=== PATIENT | male | born 1960 | race Caucasian/White ===

== ENCOUNTER 2020-06-03 09:09 | Inpatient (IN) ==
[2020-06-03] MEDS ORDERED: IOPAMIDOL 100 ML BOTTLE IV ONE (09:10)
[2020-06-03] MEDS ORDERED: HYDROmorphone 0.5 MG/0.5 ML SYRINGE IV PRN (09:43)
[2020-06-03] MEDS ORDERED: 0.9 % SODIUM CHLORIDE 1,000 ML IV ONE (09:50)
[2020-06-03] MEDS ORDERED: VANCOMYCIN 1,000 MG in 0.9 % SODIUM CHLORIDE 250 ML IV ONE (09:50)
[2020-06-03] MEDS ORDERED: ONDANSETRON 4 MG/2 ML VIAL IV ONE (09:50)
--- NOTE | 2020-06-03 09:56 | Emergency Department Note ---
SOB HPI General Chief Complaint: Shortness of Breath/Dyspnea Stated Complaint: Sob Time Seen by Provider: 06/03/20 09:37 Source: EMS Mode of arrival: EMS Limitations: no limitations History of Present Illness HPI Narrative: Narrative: 59-year-old male with known metastatic colon cancer comes in complaining of shortness of breath starting this morning. Pain is worse this morning. He is already on fentanyl patches x3 and apixaban-along with as needed hydromorphone for breakthrough pain. He is on Compazine for n ausea at home along with Zofran. He feels like he just cannot catch his breath At this time he is not on hospice, however he is a DNR but does want treatment today Related Data Previous Rx's Medication Instructions Recorded budesonide 3 mg 3 mg PO QAM #30 each 04/27/20 capsule,delayed,extended release prochlorperazine maleate 10 mg 10 mg PO Q6H PRN #90 tab 05/04/20 tablet fentanyl 75 mcg/hr transdermal 5 patch TRANSDERMA Q72H 28 Days 05/18/20 patch #50 each hydromorphone 4 mg tablet See Rx Instructions PO QID PRN 05/19/20 #180 tab ondansetron 8 mg disintegrating 8 mg PO Q8H PRN #60 tab 05/27/20 tablet apixaban 5 mg tablet 5 mg PO BID #60 tab 05/31/20 oxybutynin chloride 5 mg 5 mg PO QDAY #30 tab 05/31/20 tablet,extended release 24 hr tamsulosin 0.4 mg capsule 0.4 mg PO QHS #90 cap 05/31/20 fentanyl 100 mcg/hr transdermal See Rx Instructions TRANSDERMA 06/02/20 patch Q48H #60 each Allergies Allergy/AdvReac Type Severity Reaction Status Date / Time No Known Drug Allergies Allergy Verified 06/03/20 09:10 Review of Systems ROS ROS Narrative: Narrative: All systems ED: reviewed and negative except as stated. [facility] Narrative Patient History Narrative: Narrative: Medical/Surgical/Family History All Active Problems (Updated 06/03/20 @ 14:04 by Danis Florian MD) Mucus plugging of bronchi (Acute) Acute UTI (Acute) Acute hypokalemia (Acute) Acute hypernatremia (Acute) Heartburn (Chronic) Increased nausea and vomiting (Chronic) Thrombocytopenia (Chronic) Severe protein-calorie malnutrition (Chronic) Severe sepsis (Chronic) Sepsis (Chronic) Intestinal adhesions with partial obstruction (Chronic) Hypotension due to hypovolemia (Chronic) DVT (deep venous thrombosis) (Chronic) Constipation due to opioid therapy (Chronic) Colon carcinoma metastatic to liver (Chronic) Carcinomatosis (Chronic) Cancer related pain (Chronic) Bacterial pneumonia (Chronic) Pedal edema (Chronic) History of heart artery stent (Chronic ~2004) History of gastric bypass (Chronic ~1998) History of colon resection (Chronic) Intestinal fistula (Chronic) Small bowel obstruction (Chronic) Malignant neoplasm of ascending colon (Chronic 01/09/20) Status post insertion of percutaneous endoscopic gastrostomy (PEG) tube (Chronic) Fistula (Chronic ~2019) Bowel obstruction (Chronic ~2019) Joint pain (Chronic) Insomnia (Chronic) Depression (Chronic) Daytime sleepiness (Chronic) Muscle pain (Chronic) Colon cancer (Chronic ~10/2019) Arthritis (Chronic) Anxiety (Chronic) Pneumonia (Chronic) Generalized weakness (Chronic) Medical History Anxiety (Chronic) Arthritis (Chronic) Bacterial pneumonia (Chronic) Bowel obstruction (Chronic ~2019) Cancer related pain (Chronic) Carcinomatosis (Chronic) Colon cancer (Chronic ~10/2019) Stage 4 metastatic Colon carcinoma metastatic to liver (Chronic) Constipation due to opioid therapy (Chronic) Daytime sleepiness (Chronic) Depression (Chronic) DVT (deep venous thrombosis) (Chronic) Fistula (Chronic ~2019) Heartburn (Chronic) Hypotension due to hypovolemia (Chronic) Insomnia (Chronic) Intestinal adhesions with partial obstruction (Chronic) Intestinal fistula (Chronic) Joint pain (Chronic) Malignant neoplasm of ascending colon (Chronic 01/09/20) Muscle pain (Chronic) Sepsis (Chronic) Severe protein-calorie malnutrition (Chronic) Severe sepsis (Chronic) Small bowel obstruction (Chronic) associated with peritoneal carcinomatosis Thrombocytopenia (Chronic) Surgical History History of colon resection (Chronic) 2013, 2017, 2019 History of gastric bypass (Chronic ~1998) History of heart artery stent (Chronic ~2004) Status post insertion of percutaneous endoscopic gastrostomy (PEG) tube (Chronic) Family History Mother Arthritis High blood pressure Father Arthritis High blood pressure Thyroid disease Family/Other Cancer Aunts, Uncles Sister Cancer Grandfather Cancer Maternal Social History Smoking Status: Current some day smoker Alcohol Intake Frequency: does not drink Substance Use: does not use Exam Narrative Narrative: Narrative: Resting, thin/cachectic very jaundiced but this is not new. Normocephalic atraumatic. Conjunctive a are clear but he does have significant icterus. No nasal discharge or congestion. He is wearing nasal cannula oxygen with sats 100%-without it. Oropharynx with dry buccal mucosa. Neck is supple without lymphadenopathy thyromegaly. Heart is regular rate and rhythm no murmur appreciated. Lungs are clear to auscultation bilaterally except for faint crackles. Abdomen is soft and diffusely tender. He has an ostomy bag as well as a Trevino. +2 pitting edema to bilateral ankle. Skin exam besides the jaundice shows significant purpura in multiple areas. PICC line in place on upper right arm General Limitations: no limitations Course Vital Signs Vital signs: Vital Signs Temperature 97.3 F 06/03/20 09:10 Pulse Rate 125 H 06/03/20 09:10 Respiratory Rate 22 06/03/20 09:10 Blood Pressure 94/65 06/03/20 09:10 Pulse Oximetry (%) 100 06/03/20 09:10 Temperature 97.3 F 06/03/20 09:10 Pulse Rate 110 H 06/03/20 13:32 Respiratory Rate 36 H 06/03/20 13:50 Blood Pressure 81/67 06/03/20 13:50 Pulse Oximetry (%) 100 06/03/20 13:32 [facility] MDM Narrative Medical decision making narrative: Narrative: Differential diagnosis includes pneumonia PE CHF ACS bronchitis and other entities. PE is less likely as he is on apixaban. Possible sepsis if this is infectious as his blood pressures are low Order work-up including laboratory blood gas. Chest x-ray shows likely pneumonia. CT ordered to confirm. Start IV fluids and antibiotics for pneumonia with possible sepsis He was getting quite anxious so we gave him some Ativan in addition to some Dilaudid for pain. He was quite somnolent after that but was retaining his oxygen sats CT scan of the chest does not show a PE but it does show complete collapse of the left lower lobe. I discussed this with Dr. Francisco Avitia the radiologist who felt that this represented more of a mucous plugging picture. So then I discussed the case with Dr. Damir Rahman the anthropological linguist who agreed to consult on the patient. Patient will need to be admitted to the hospitalist- again he is DNR but does want treatment I discussed with him that we could not fully treat him here he was in septic shock and this could be lethal. I offered to send him north to [place] for more extensive treatment but he declined; as best as I can tell he wants us to do more limited care down here treating him with antibiotics and fluids and pressors with the understanding that he will likely of his metastatic colon cancer. I discussed this with the hospitalist and advised him that the patient does wanted limited care here. The family and social and political studies professor are involved and he may be transitioned to comfort care later but for right now, that is his wishes. We will go ahead and start Levophed as his blood pressures continue to trend down. He does not seem uncomfortable now. Anxiety and pain treatment seems to have worked. He has low potassium and cannot take orals so we will do a K rider I discussed this with Dr. Whitman the hospitalist but after my discussion the patient's family all came together and decided to make him comfort care only. We will discontinue antibiotics pressors and K rider. Dr. Whitman will bring him in for comfort care only Lab Data Result diagrams: 06/03/20 10:12 06/03/20 10:12 Labs: Lab Results 06/03/20 06/03/20 06/03/20 Range/Units 10:12 10:12 10:12 WBC 10.7 (4.50-11.00) K/mcL RBC 3.61 L (4.63-6.08) M/mcL Hgb 10.5 L (13.7-17.5) g/dL Hct 34.4 L (40.1-51.0) % MCV 95.3 (80.0-100.0) fL MCH 29.1 (26.0-34.0) pg MCHC 30.5 L (31.0-36.0) g/dL RDW 18.6 H (11.5-14.5) % Plt Count 65 L (140-440) K/mcL MPV TNP Gran % 96.4 H (38.0-78.0) % Lymph % (Auto) 2.1 L (15.5-49.0) % Isabela % (Auto) 1.1 (1.0-12.0) % Eos % (Auto) 0.1 (0.0-7.0) % Baso % (Auto) 0.3 (0.0-2.0) % Gran # 10.32 H (1.80-8.00) K/mcL Lymph # (Auto) 0.23 L (1.50-4.80) K/mcL Isabela # (Auto) 0.12 (0.10-0.90) K/mcL Eos # (Auto) 0.01 (0.00-0.70) K/mcL Baso # (Auto) 0.03 (0.00-0.30) K/mcL Differential Comment Few nrbcs on scan VBG Lactic Acid 4.0 H* (0.5-2.0) mmol/L Sodium 155 H (133-145) mmol/L Potassium 2.9 L* (3.3-5.1) mmol/L Chloride 118 H (96-108) mmol/L Carbon Dioxide 18 L (22-30) mmol/L Anion Gap 19.0 H (8-16) BUN 62 H (8-23) mg/dl Creatinine TNP POC Creatinine 0.7 (0.7-1.2) mg/dl GFR Calculation TNP Glucose 89 (70-105) mg/dL Calcium 8.4 L (8.6-10.4) mg/dl Magnesium 2.8 H (1.6-2.5) mg/dL Total Bilirubin 11.7 H (0.0-1.0) mg/dL AST 66 H (0-37) U/l ALT 112 H (0-40) U/l Alkaline Phosphatase 1507 H (39-117) U/L Troponin T (0-0.03) ng/ml NT-Pro-B Natriuret Pep 190.1 H (0-125) pg/ml Total Protein 5.4 L (5.9-8.4) gm/dL Albumin 1.7 L (3.2-5.2) gm/dL Globulin 3.7 (2.2-3.7) gm/dL Albumin/Globulin Ratio 0.5 L (1.0-2.3) Lipase 10 (7-60) U/L Procalcitonin (<0.10) ng/mL Urine Color Urine Appearance Urine pH (5.0-9.0) Ur Specific Wolsey (1.000-1.035) Urine Protein (NEG) mg/dL Urine Glucose (UA) (NEG) mg/dL Urine Ketones (NEG) mg/dL Urine Occult Blood (<0.03) mg/dL Urine Nitrate (NEG) Urine Bilirubin (NEG) mg/dL Urine Ictotest (NEG) Urine Urobilinogen (NEG) mg/dL Ur Leukocyte Esterase (NEG) /uL Urine RBC (0-1) /hpf Urine WBC (0-4) /hpf Ur Squamous Epith Cells (0-4) /hpf Ur Transition Epith Cell (0-2) /hpf Urine Bacteria (0) /hpf Hyaline Casts (0-2) /lpf Granular Casts (0) /lpf Urine Mucus (0) /hpf Ur Culture Indicated? 06/03/20 06/03/20 06/03/20 Range/Units 10:12 10:12 11:03 WBC (4.50-11.00) K/mcL RBC (4.63-6.08) M/mcL Hgb (13.7-17.5) g/dL Hct (40.1-51.0) % MCV (80.0-100.0) fL MCH (26.0-34.0) pg MCHC (31.0-36.0) g/dL RDW (11.5-14.5) % Plt Count (140-440) K/mcL MPV Gran % (38.0-78.0) % Lymph % (Auto) (15.5-49.0) % Isabela % (Auto) (1.0-12.0) % Eos % (Auto) (0.0-7.0) % Baso % (Auto) (0.0-2.0) % Gran # (1.80-8.00) K/mcL Lymph # (Auto) (1.50-4.80) K/mcL Isabela # (Auto) (0.10-0.90) K/mcL Eos # (Auto) (0.00-0.70) K/mcL Baso # (Auto) (0.00-0.30) K/mcL Differential Comment VBG Lactic Acid (0.5-2.0) mmol/L Sodium (133-145) mmol/L Potassium (3.3-5.1) mmol/L Chloride (96-108) mmol/L Carbon Dioxide (22-30) mmol/L Anion Gap (8-16) BUN (8-23) mg/dl Creatinine POC Creatinine (0.7-1.2) mg/dl GFR Calculation Glucose (70-105) mg/dL Calcium (8.6-10.4) mg/dl Magnesium (1.6-2.5) mg/dL Total Bilirubin (0.0-1.0) mg/dL AST (0-37) U/l ALT (0-40) U/l Alkaline Phosphatase (39-117) U/L Troponin T < 0.01 (0-0.03) ng/ml NT-Pro-B Natriuret Pep (0-125) pg/ml Total Protein (5.9-8.4) gm/dL Albumin (3.2-5.2) gm/dL Globulin (2.2-3.7) gm/dL Albumin/Globulin Ratio (1.0-2.3) Lipase (7-60) U/L Procalcitonin 6.91 (<0.10) ng/mL Urine Color Tika Urine Appearance Hazy Urine pH 5.0 (5.0-9.0) Ur Specific Wolsey 1.017 (1.000-1.035) Urine Protein 30 A (NEG) mg/dL Urine Glucose (UA) Negative (NEG) mg/dL Urine Ketones Neg (NEG) mg/dL Urine Occult Blood Neg (<0.03) mg/dL Urine Nitrate Neg (NEG) Urine Bilirubin 4.0 A (NEG) mg/dL Urine Ictotest Pos A (NEG) Urine Urobilinogen 4.0 A (NEG) mg/dL Ur Leukocyte Esterase Neg (NEG) /uL Urine RBC < 1 (0-1) /hpf Urine WBC 4 (0-4) /hpf Ur Squamous Epith Cells 0 (0-4) /hpf Ur Transition Epith Cell < 1 (0-2) /hpf Urine Bacteria Many A (0) /hpf Hyaline Casts 31 H (0-2) /lpf Granular Casts 27 H (0) /lpf Urine Mucus Few (0) /hpf Ur Culture Indicated? Yes Radiology Data Radiology results reviewed: Yes I reviewed the patient's radiology results. Radiology results narrative: Chest x-ray shows left lower lobe infiltrate versus CHF. Possibly early right CT scan of the chest shows bilateral atelectasis with mucous plugging on the left and complete collapse of left lower lung. Small spiculated mass right upper lung could be neoplasm. Multiple metastasis seen in the liver Discharge Plan Patient/Caregiver Discharge Instructions Pt seen by RETAIL AIDE/PA only: No Clinical Impression: Sepsis, Bacterial pneumonia, Mucus plugging of bronchi, Cancer related pain, Malignant neoplasm of ascending colon, Colon carcinoma metastatic to liver, Acute UTI, Acute hypokalemia, Acute hypernatremia Patient Disposition: Xfer As Inpt ([facility]) Condition: Critical Follow up with: Vini Mckinley DO [Primary Care Provider] - Prescriptions: No Action prochlorperazine maleate 10 mg tablet 10 mg PO Q6H PRN (Reason: Nausea) Qty: 90 RF: 0 fentanyl 75 mcg/hr patch 72 hour 5 patch TRANSDERMA Q72H 28 Days Qty: 50 RF: 0 hydromorphone 4 mg tablet See Rx Instructions PO QID PRN (Reason: Pain) Qty: 180 RF: 0 ondansetron 8 mg tablet,disintegrating 8 mg PO Q8H PRN (Reason: nausea and vomiting) Qty: 60 RF: 0 Eliquis 5 mg tablet 5 mg PO BID Qty: 60 RF: 5 tamsulosin [Flomax] 0.4 mg capsule 0.4 mg PO QHS Qty: 90 RF: 3 oxybutynin chloride 5 mg tablet extended release 24hr 5 mg PO QDAY Qty: 30 RF: 5 budesonide 3 mg capsule,delayed,extend.release 3 mg PO QAM Qty: 30 RF: 0 fentanyl 100 mcg/hr patch 72 hour See Rx Instructions TRANSDERMA Q48H Qty: 60 RF: 0
[2020-06-03] MEDS ORDERED: PIPERACILLIN SODIUM/TAZOBACTAM 3.375 GM in DEXTROSE 5% IN WATER 50 ML IV SCH (10:00)
[2020-06-03 10:26] LABS: POC Creatinine 0.7 mg/dl (0.7-1.2)
--- NOTE | 2020-06-03 10:35 | XRay Report ---
HISTORY: Increasing shortness of breath, prior history of colon cancer with metastasis FINDINGS: Patient has developed alveolar infiltrates in both lungs with the greatest involvement in the left lower lobe. Is no evidence of pulmonary metastasis. No pleural effusion or adenopathy are detected. The heart size is normal. There is a PICC line placed to the right arm with the tip in the superior vena cava. Comparison with the prior exam done on 04/11/20 shows the alveolar infiltrates are new. IMPRESSION: New onset bilateral alveolar infiltrates, left worse than right. This is probably due to pneumonia. This is unlikely pulmonary edema. Noninfectious inflammatory reaction such as a hypersensitivity or drug reaction are also in the differential. Interpreted and Authenticated by: Francisco Avitia 06/03/20
[2020-06-03] MEDS ORDERED: LORazepam 2 MG/ML VIAL IV ONE (10:38)
--- NOTE | 2020-06-03 11:20 | Cat Scan Report ---
History: Increased shortness of breath, stage IV colon cancer TECHNIQUE: Following injection of intravenous contrast the patient was scanned during the arterial phase from the thoracic inlet to the diaphragms. Sagittal, coronal and axial MIPS images were created. The radiation exposure was limited using dose reduction technology. FINDINGS: The pulmonary arteries are normal without evidence of pulmonary emboli. The aorta is normal in caliber and there is very little plaque formation. There is a moderate amount of plaque in the left anterior descending coronary artery. The heart size is normal and there is no pericardial effusion. In the anterior segment of the right upper lobe there is a spiculated mass which measures 7 x 8 mm and is seen on axial image #30. No other lung mass is present. There are small layering bilateral pleural effusions causing mild compressive atelectasis both lower lobes. There is complete occlusion of the left lower lobe bronchus. The material in the bronchus is relatively low attenuation and is more likely mucous than tumor. There is still partial aeration of the superior segment left lower lobe. The trachea and remainder the bronchi are normal. Numerous widespread low-attenuation lesions are present throughout the liver. These are new finding since 02/11/20 and are probably liver metastasis. There is severe dilatation of the intrahepatic bile ducts. This is a chronic finding. There are also cystic collections in the left upper abdomen. The patient has had prior gastric bypass performed. I cannot determine whether the fluid pockets are related to prior surgery or has developed new cystic lesions. IMPRESSION: Occlusion of the left lower lobe bronchus causing partial left lower lobe atelectasis. This is more likely mucous plugging rather than neoplasm. Solitary spiculated mass in the right upper lobe which is more likely a new primary lung cancer rather than a solitary pulmonary metastasis Widespread liver metastasis which are probably related to the patient's known colon cancer No evidence pulmonary emboli Dr. Florian was called with the results Interpreted and Authenticated by: Francisco Avitia 06/03/20
[2020-06-03 11:58] LABS: Basophils # (Auto) 0.03 K/mcL (0.00-0.30); Basophils % (Auto) 0.3 % (0.0-2.0); Eosinophils # (Auto) 0.01 K/mcL (0.00-0.70); Eosinophils % (Auto) 0.1 % (0.0-7.0); Granulocytes % (Auto) 96.4 % (38.0-78.0); Hematocrit 34.4 % (40.1-51.0); Hemoglobin 10.5 g/dL (13.7-17.5); Lymphocytes # (Auto) 0.23 K/mcL (1.50-4.80); Lymphocytes % (Auto) 2.1 % (15.5-49.0); Mean Cell Volume 95.3 fL (80.0-100.0); Mean Corpuscular HGB Conc 30.5 g/dL (31.0-36.0); Monocytes # (Auto) 0.12 K/mcL (0.10-0.90); Monocytes % (Auto) 1.1 % (1.0-12.0); Platelet Count 65 K/mcL (140-440); RBC 3.61 M/mcL (4.63-6.08); Red Cell Distribution Width 18.6 % (11.5-14.5); WBC 10.7 K/mcL (4.50-11.00)
[2020-06-03 12:05] LABS: proBNP 190.1 pg/ml (0-125)
[2020-06-03 12:21] LABS: ALT/SGPT 112 U/l (0-40); AST/SGOT 66 U/l (0-37); Albumin 1.7 gm/dL (3.2-5.2); Albumin/Globulin Ratio 0.5 (1.0-2.3); Bilirubin,Total 11.7 mg/dL (0.0-1.0); Blood Urea Nitrogen 62 mg/dl (8-23); Calcium 8.4 mg/dl (8.6-10.4); Carbon Dioxide 18 mmol/L (22-30); Chloride 118 mmol/L (96-108); Globulin 3.7 gm/dL (2.2-3.7); Glucose 89 mg/dL (70-105)
[2020-06-03 12:22] LABS: Appearance,Urine HAZY; Bacteria,Urine MANY /hpf (0); Color,Urine AMBER; Culture Indicated,Urine YES; Glucose,Urine (UA) NEGATIVE (NEG); Ictotest,Urine POS (NEG); Ketones,Urine NEG (NEG); Leukocyte Esterase,Urine NEG /uL (NEG); Mucus,Urine FEW /hpf (0); Nitrate,Urine NEG (NEG); Protein,Urine 30 mg/dL (NEG); Specific Gravity,Urine 1.017 (1.000-1.035); Urine Blood NEG mg/dL (<0.03); Urine Granular Cast 27 /lpf (0); Urine Hyaline Cast 31 /lpf (0-2); Urine RBC < 1 /hpf (0-1); Urine Squamous Epithelial Cell 0 /hpf (0-4); Urine Transitional Epi Cells < 1 /hpf (0-2); Urine WBC 4 /hpf (0-4)
[2020-06-03 12:24] LABS: Alkaline Phosphatase 1507 U/L (39-117)
[2020-06-03] MEDS ORDERED: POTASSIUM CHLORIDE 20 MEQ TABLET PO ONE (12:29)
[2020-06-03] MEDS ORDERED: POTASSIUM CHLORIDE 20 MEQ in DEXTROSE 5% IN WATER 250 ML IV ONE (13:31)
[2020-06-03] MEDS ORDERED: NOREPINEPHRINE BITARTRATE 8 MG in 0.9 % SODIUM CHLORIDE 242 ML IV ONE (13:32)
[2020-06-03] MEDS ORDERED: 0.9 % SODIUM CHLORIDE 250 ML IV SCH (13:45)
[2020-06-03] MEDS ORDERED: HYDROmorphone 1 MG/ML SYRINGE IV ONE (14:02)
--- NOTE | 2020-06-03 14:03 | Internal Med History&Physical ---
HPI History of Present Illness Patient information: Note initiated : 06/03/20 at 2:03 pm Service Date, if different from initiated Date: [] Patient: Viktor Sarkar a 59 y/o M admitted on for Sob. Chief Complaint: Shortness of breath/jaundice History of present illness: Mr. Sarkar is a 59 year old M with a history of metastatic colon cancer on outpatient chemotherapy and [employer]/severe cancer pain, recent pneumonia end of March abdominal fistula/total parental feeding since early this year. Patient presents to the ER with profound jaundice/shortness of breath and acute mental status change. Initial work-up was consistent with septic shock with systolics in 70s, elevated bilirubin over 12, hypokalemia,, sodium 155, platelets 65, chest imaging with left lower lobe infiltrate likely secondary to mucous plugging. Due to critical nature of illness patient was started on vasopressors and pulmonology was consulted. Hospital service was consulted. Patient is accompanied with her aunt and patient's POA Kierra. Sister is on the way. Family after extended discussion with patient/POA and ER physician Dr. Florian decided to discontinue aggressive intervention and transition to comfort interventions for end-of-life care. During my visit and and POA was present. I discussed patient's clinical picture including septic shock/pneumonia/metastatic cancer with lesions in lung and liver/profound mental status change and jaundice. Family was able to provide history and a long danielle with cancer and ongoing chemotherapy/abdominal fistula/total parenteral nutrition without significant improvement in quality of life. At this time everyone in the room including POA wishes to initiate palliative care for end-of-life transition and comfort I discussed the components of comfort care includes discontinuation of antibiotics/IV fluids/total parenteral nutrition and vasopressors. Patient will be kept on anxiolytics/analgesics for end-of-life care to allay anxiety and pain. Family is agreeable to the plan and patient will be transferred to medical floor for aggressive pain and symptom management Review of systems Could not performed due to patient's altered mental status. Appears jaundiced, anxious and labored breathing PFSH PFSH All Active Problems (Updated 06/03/20 @ 14:04 by Danis Florian MD) Mucus plugging of bronchi (Acute) Acute UTI (Acute) Acute hypokalemia (Acute) Acute hypernatremia (Acute) Heartburn (Chronic) Increased nausea and vomiting (Chronic) Thrombocytopenia (Chronic) Severe protein-calorie malnutrition (Chronic) Severe sepsis (Chronic) Sepsis (Chronic) Intestinal adhesions with partial obstruction (Chronic) Hypotension due to hypovolemia (Chronic) DVT (deep venous thrombosis) (Chronic) Constipation due to opioid therapy (Chronic) Colon carcinoma metastatic to liver (Chronic) Carcinomatosis (Chronic) Cancer related pain (Chronic) Bacterial pneumonia (Chronic) Pedal edema (Chronic) History of heart artery stent (Chronic ~2004) History of gastric bypass (Chronic ~1998) History of colon resection (Chronic) Intestinal fistula (Chronic) Small bowel obstruction (Chronic) Malignant neoplasm of ascending colon (Chronic 01/09/20) Status post insertion of percutaneous endoscopic gastrostomy (PEG) tube (Chronic) Fistula (Chronic ~2019) Bowel obstruction (Chronic ~2019) Joint pain (Chronic) Insomnia (Chronic) Depression (Chronic) Daytime sleepiness (Chronic) Muscle pain (Chronic) Colon cancer (Chronic ~10/2019) Arthritis (Chronic) Anxiety (Chronic) Pneumonia (Chronic) Generalized weakness (Chronic) Medical History Anxiety (Chronic) Arthritis (Chronic) Bacterial pneumonia (Chronic) Bowel obstruction (Chronic ~2019) Cancer related pain (Chronic) Carcinomatosis (Chronic) Colon cancer (Chronic ~10/2019) Stage 4 metastatic Colon carcinoma metastatic to liver (Chronic) Constipation due to opioid therapy (Chronic) Daytime sleepiness (Chronic) Depression (Chronic) DVT (deep venous thrombosis) (Chronic) Fistula (Chronic ~2019) Heartburn (Chronic) Hypotension due to hypovolemia (Chronic) Insomnia (Chronic) Intestinal adhesions with partial obstruction (Chronic) Intestinal fistula (Chronic) Joint pain (Chronic) Malignant neoplasm of ascending colon (Chronic 01/09/20) Muscle pain (Chronic) Sepsis (Chronic) Severe protein-calorie malnutrition (Chronic) Severe sepsis (Chronic) Small bowel obstruction (Chronic) associated with peritoneal carcinomatosis Thrombocytopenia (Chronic) Surgical History History of colon resection (Chronic) 2013, 2017, 2019 History of gastric bypass (Chronic ~1998) History of heart artery stent (Chronic ~2004) Status post insertion of percutaneous endoscopic gastrostomy (PEG) tube (Chronic) Family History Mother Arthritis High blood pressure Father Arthritis High blood pressure Thyroid disease Family/Other Cancer Aunts, Uncles Sister Cancer Grandfather Cancer Maternal Social History marital status: legally smoking status: Current some day smoker alcohol intake frequency: does not drink substance use type: does not use MEDS/ALLERGIES Home Medications and Allergies Home Medications Medication Instructions Recorded Confirmed Type budesonide 3 mg 3 mg PO QAM #30 each 04/27/20 06/02/20 Rx capsule,delayed,extended release prochlorperazine maleate 10 mg 10 mg PO Q6H PRN #90 tab 05/04/20 06/02/20 Rx tablet fentanyl 75 mcg/hr transdermal 5 patch TRANSDERMA Q72H 28 Days 05/18/20 06/02/20 Rx patch #50 each hydromorphone 4 mg tablet See Rx Instructions PO QID PRN 05/19/20 06/02/20 Rx #180 tab ondansetron 8 mg disintegrating 8 mg PO Q8H PRN #60 tab 05/27/20 06/02/20 Rx tablet apixaban 5 mg tablet 5 mg PO BID #60 tab 05/31/20 06/02/20 Rx oxybutynin chloride 5 mg 5 mg PO QDAY #30 tab 05/31/20 06/02/20 Rx tablet,extended release 24 hr tamsulosin 0.4 mg capsule 0.4 mg PO QHS #90 cap 05/31/20 06/02/20 Rx fentanyl 100 mcg/hr transdermal See Rx Instructions TRANSDERMA 06/02/20 06/02/20 Rx patch Q48H #60 each Allergies Allergy/AdvReac Type Severity Reaction Status Date / Time No Known Drug Allergies Allergy Verified 06/03/20 09:10 EXAM Constitutional Vitals: Temp Pulse Resp BP Pulse Ox 97.3 F 110 H 36 H 81/67 100 06/03/20 09:10 06/03/20 13:32 06/03/20 13:50 06/03/20 13:50 06/03/20 13:32 jaundiced Labored breathing PEG tube Fistula bag abdomen Malnourished Confused Further exam deferred including palpation and auscultation to avoid discomfort DATA Data Completed and Pending Labs: Labs from last 24 hours 06/03/20 06/03/20 06/03/20 11:03 10:12 10:12 WBC RBC Hgb Hct MCV MCH MCHC RDW Plt Count MPV Gran % Lymph % (Auto) [place] % (Auto) Eos % (Auto) Baso % (Auto) Gran # Lymph # (Auto) [place] # (Auto) Eos # (Auto) Baso # (Auto) Differential Comment VBG Lactic Acid Sodium Potassium Chloride Carbon Dioxide Anion Gap BUN Creatinine POC Creatinine GFR Calculation Glucose Calcium Magnesium Total Bilirubin AST ALT Alkaline Phosphatase Troponin T < 0.01 NT-Pro-B Natriuret Pep Total Protein Albumin Globulin Albumin/Globulin Ratio Lipase Procalcitonin 6.91 Urine Color Tika Urine Appearance Hazy Urine pH 5.0 Ur Specific [place] 1.017 Urine Protein 30 A Urine Glucose (UA) Negative Urine Ketones Neg Urine Occult Blood Neg Urine Nitrate Neg Urine Bilirubin 4.0 A Urine Ictotest Pos A Urine Urobilinogen 4.0 A Ur Leukocyte Esterase Neg Urine RBC < 1 Urine WBC 4 Ur Squamous Epith Cells 0 Ur Transition Epith Cell < 1 Urine Bacteria Many A Hyaline Casts 31 H Granular Casts 27 H Urine Mucus Few Ur Culture Indicated? Yes 06/03/20 06/03/20 06/03/20 10:12 10:12 10:12 WBC 10.7 RBC 3.61 L Hgb 10.5 L Hct 34.4 L MCV 95.3 MCH 29.1 MCHC 30.5 L RDW 18.6 H Plt Count 65 L MPV TNP Gran % 96.4 H Lymph % (Auto) 2.1 L Lanier % (Auto) 1.1 Eos % (Auto) 0.1 Baso % (Auto) 0.3 Gran # 10.32 H Lymph # (Auto) 0.23 L [place] # (Auto) 0.12 Eos # (Auto) 0.01 Baso # (Auto) 0.03 Differential Comment Few nrbcs on scan VBG Lactic Acid 4.0 H* Sodium 155 H Potassium 2.9 L* Chloride 118 H Carbon Dioxide 18 L Anion Gap 19.0 H BUN 62 H Creatinine TNP POC Creatinine 0.7 GFR Calculation TNP Glucose 89 Calcium 8.4 L Magnesium 2.8 H Total Bilirubin 11.7 H AST 66 H ALT 112 H Alkaline Phosphatase 1507 H Troponin T NT-Pro-B Natriuret Pep 190.1 H Total Protein 5.4 L Albumin 1.7 L Globulin 3.7 Albumin/Globulin Ratio 0.5 L Lipase 10 Procalcitonin Urine Color Urine Appearance Urine pH Ur Specific [place] Urine Protein Urine Glucose (UA) Urine Ketones Urine Occult Blood Urine Nitrate Urine Bilirubin Urine Ictotest Urine Urobilinogen Ur Leukocyte Esterase Urine RBC Urine WBC Ur Squamous Epith Cells Ur Transition Epith Cell Urine Bacteria Hyaline Casts Granular Casts Urine Mucus Ur Culture Indicated? A/P Narrative A/P Narrative: * End-of-life care/comfort and palliation with aggressive pain and symptom management. Admit inpatient medical floor Underlying active issues, extremely poor prognosis in light of [place] 2 score 23. Critically ill and imminent * Septic shock secondary to pneumonia * Left lower lobe atelectasis/pneumonia * Metastatic colon cancer * Jaundice secondary to infiltrative liver mass * Hyponatremia * Hypokalemia * Severe malnutrition currently on TPN Plan * Admit for palliation * Aggressive pain and symptom management * Family conference as needed Time Spent With Patient Time: Total time spent is greater than 50% in coordination of care (as documented) at patient's floor/unit and/or counseling patient:
[2020-06-03] MEDS ORDERED: LACTOPEROXI/GLUC OXID/POT THIO 1 EACH GEL..EA. TOPICAL PRN (15:15)
[2020-06-03] MEDS ORDERED: ONDANSETRON 4 MG ODT TABLET SL PRN (15:15)
[2020-06-03] MEDS ORDERED: ONDANSETRON 4 MG/2 ML VIAL IV PRN (15:15)
[2020-06-03] MEDS ORDERED: SCOPOLAMINE 1 PATCH PATCH TOPICAL SCH (16:30)
[2020-06-03] MEDS: HYDROmorphone 1 MG/ML SYRINGE IV PRN ×3 (16:54→23:05)
[2020-06-03] MEDS: fentaNYL 100 MCG PATCH TOPICAL SCH (17:55)
[2020-06-03] MEDS: NICOTINE 21 MG PATCH TOPICAL SCH (19:22)
[2020-06-03] MEDS: 0.9 % SODIUM CHLORIDE 10 ML SYRINGE IV SCH (23:05)
[2020-06-04] MEDS: LORazepam 2 MG/ML VIAL IV PRN ×4 (00:04→20:26)
[2020-06-04] MEDS: 0.9 % SODIUM CHLORIDE 10 ML SYRINGE IV SCH ×3 (05:25→23:55)
[2020-06-04] MEDS: HYDROmorphone 1 MG/ML SYRINGE IV PRN ×4 (05:25→20:27)
[2020-06-04] MEDS: NICOTINE 21 MG PATCH TOPICAL SCH (08:59)
--- NOTE | 2020-06-04 10:03 | Internal Med Progress Note ---
SUBJECTIVE Subjective Patient information: Note initiated : 06/04/20 at 10:00 am Service Date, if different from initiated Date: [] Patient: Viktor Sarkar a 59 y/o M admitted on 06/03/20 for Sob. Chief Complaint: History of present illness: Mr. Sarkar is a 59 year old M with a history of metastatic colon cancer on outpatient chemotherapy and [facility]/severe cancer pain, recent pneumonia end of March abdominal fistula/total parental feeding since early this year. Patient presents to the ER with profound jaundice/shortness of breath and acute mental status change. Initial work-up was consistent with septic shock with systolics in 70s, elevated bilirubin over 12, hypokalemia,, sodium 155, platelets 65, chest imaging with left lower lobe infiltrate likely secondary to mucous plugging. Due to critical nature of illness patient was started on vasopressors and pulmonology was con sulted. Hospital service was consulted. Patient is accompanied with her aunt and patient's POA Kierra. Sister is on the way. Family after extended discussion with patient/POA and ER physician Dr. Florian decided to discontinue aggressive intervention and transition to comfort interventions for end-of-life care. During my visit and and POA was present. I discussed patient's clinical picture including septic shock/pneumonia/metastatic cancer with lesions in lung and liver/profound mental status change and jaundice. Family was able to provide history and a long danielle with cancer and ongoing chemotherapy/abdominal fistula/total parenteral nutrition without significant improvement in quality of life. At this time everyone in the room including POA wishes to initiate palliative care for end-of-life transition and comfort I discussed the components of comfort care includes discontinuation of antibiotics/IV fluids/total parenteral nutrition and vasopressors. Patient will be kept on anxiolytics/analgesics for end-of-life care to allay anxiety and pain. Family is agreeable to the plan and patient will be transferred to medical floor for aggressive pain and symptom management Responded to nurse call regarding family wanting additional conference about goals of care. Patient's sister just arrived and would like an update. I subsequently discussed clinical picture including work-up in ER, imaging, blood tests and multiorgan dysfunction in the setting of septic shock. Sister agrees with continuation of comfort care including aggressive cancer pain management. Patient is awake and agrees with the treatment plan understanding that he would pass away. 06/04-patient comfortable overnight. On palliative care interventions. Remains icteric. No family at bedside. No concerns per staff. Constitutional Vitals: Vital Signs Temp Pulse Resp BP Pulse Ox 97.9 F 103 H 28 H 89/62 99 06/03/20 20:50 06/03/20 20:50 06/03/20 20:50 06/03/20 20:50 06/03/20 20:50 Period Temp Pulse Resp BP Sys/Singh Pulse Ox Last 24 Hr 97.3 F-97.9 F 65-119 25-42 62-114/49-99 81-100 Intake and Output 06/03/20 06/04/20 06/04/20 21:59 05:59 13:59 Output Total 900 175 Balance -900 -175 Weight 64.864 kg Profoundly icteric Minimally labored No anxiety or discomfort Intake & Output: Intake & Output 06/03/20 06/04/20 06/04/20 21:59 05:59 13:59 Output Total 900 175 Balance -900 -175 Weight 64.864 kg Output: Gastric Drainage 750 50 PEG 750 50 Urine Catheter Amount 150 125 Stool 0 0 Other: Urine Appearance Cloudy Cloudy Trevino Cloudy Urine Color Dark Tika Dark Tika Trevino Dark Tika OBJ DATA Labs CBC & Chem 7: 06/03/20 10:12 06/03/20 10:12 Labs: Abnormal Lab Results 06/03/20 06/03/20 06/03/20 11:03 10:12 10:12 RBC Hgb Hct MCHC RDW Plt Count Gran % Lymph % (Auto) Gran # Lymph # (Auto) VBG Lactic Acid 4.0 H* Sodium 155 H Potassium 2.9 L* Chloride 118 H Carbon Dioxide 18 L Anion Gap 19.0 H BUN 62 H Calcium 8.4 L Magnesium 2.8 H Total Bilirubin 11.7 H AST 66 H ALT 112 H Alkaline Phosphatase 1507 H NT-Pro-B Natriuret Pep 190.1 H Total Protein 5.4 L Albumin 1.7 L Albumin/Globulin Ratio 0.5 L Urine Protein 30 A Urine Bilirubin 4.0 A Urine Ictotest Pos A Urine Urobilinogen 4.0 A Urine Bacteria Many A Hyaline Casts 31 H Granular Casts 27 H 06/03/20 10:12 RBC 3.61 L Hgb 10.5 L Hct 34.4 L MCHC 30.5 L RDW 18.6 H Plt Count 65 L Gran % 96.4 H Lymph % (Auto) 2.1 L Gran # 10.32 H Lymph # (Auto) 0.23 L VBG Lactic Acid Sodium Potassium Chloride Carbon Dioxide Anion Gap BUN Calcium Magnesium Total Bilirubin AST ALT Alkaline Phosphatase NT-Pro-B Natriuret Pep Total Protein Albumin Albumin/Globulin Ratio Urine Protein Urine Bilirubin Urine Ictotest Urine Urobilinogen Urine Bacteria Hyaline Casts Granular Casts Meds: Medications Fentanyl (Duragesic) 400 mcg TOPICAL Q72H [facility] Last Admin: 06/03/20 17:55 Dose: 400 mcg Documented by: Glucose Oxid/Lactoperoxid/Muramidas (Biotene) 1 each TOPICAL PRN PRN PRN Reason: Dry Mouth Heparin Sodium (Porcine) (Heparin 10 Units/Ml Flush) 2 ml IV Q12 [facility] Last Admin: 06/04/20 09:00 Dose: 2 ml Documented by: Hydromorphone HCl (Dilaudid) 0 mg IV Q2HP PRN; Protocol PRN Reason: Per Pain Protocol Last Admin: 06/04/20 09:00 Dose: 2 mg Documented by: Lorazepam (Ativan) 0 mg IV Q1HP PRN; Protocol PRN Reason: ANXIETY/SEDATION Last Admin: 06/04/20 06:41 Dose: 2 mg Documented by: Nicotine (Nicoderm) 21 mg TOPICAL DAILY@1000 [facility] Last Admin: 06/04/20 08:59 Dose: 21 mg Documented by: Ondansetron HCl (Zofran Odt) 4 mg SL Q4HP PRN; Protocol PRN Reason: Nausea And Vomiting Last Admin: 06/04/20 08:59 Dose: 4 mg Documented by: Ondansetron HCl (Zofran) 4 mg IV Q4HP PRN; Protocol PRN Reason: Nausea And Vomiting Scopolamine (Transderm-Scop) 1 patch TOPICAL Q72H [facility] Last Admin: 06/03/20 16:54 Dose: 1 patch Documented by: Sodium Chloride (Saline Flush) 10 ml IV Q12 [facility] Last Admin: 06/04/20 09:01 Dose: 10 ml Documented by: A/P Narrative A/P Narrative: * End-of-life care/comfort and palliation with aggressive pain and symptom management.patient doing well and appears comfortable. No concerns per staff. Underlying active issues, extremely poor prognosis in light of [place] 2 score 23. Remains critically ill due to following * Septic shock secondary to pneumonia * Left lower lobe atelectasis/pneumonia * Metastatic colon cancer, new onset apical lung cancer * Obstructive jaundice secondary to infiltrative liver lesions * Hyponatremia * Hypokalemia * Severe malnutrition has been on TPN. Discontinued per family request Plan * Continue palliation * Aggressive pain and symptom management * Family conference as needed Time Spent With Patient Time: Total time spent is greater than 50% in coordination of care (as documented) at patient's floor/unit and/or counseling patient: QUALITY VTE Deep Vein Thrombosis/Pulmonary Embolism Present on Admission: No
[2020-06-05] MEDS: LORazepam 2 MG/ML VIAL IV PRN ×3 (02:17→20:56)
[2020-06-05] MEDS: HYDROmorphone 1 MG/ML SYRINGE IV PRN ×2 (02:17→20:57)
[2020-06-05] MEDS: 0.9 % SODIUM CHLORIDE 10 ML SYRINGE IV SCH ×2 (11:58→20:58)
[2020-06-05] MEDS: NICOTINE 21 MG PATCH TOPICAL SCH (11:59)
--- NOTE | 2020-06-05 15:52 | Internal Med Progress Note ---
SUBJECTIVE Subjective Patient information: Note initiated : 06/05/20 at 3:50 pm Service Date, if different from initiated Date: [] Patient: Viktor Sarkar a 59 y/o M admitted on 06/03/20 for Sob. Chief Complaint: [] History of present illness: Mr. Sarkar is a 59 year old M with a history of metastatic colon cancer on outpatient chemotherapy and [facility]/severe cancer pain, recent pneumonia end of March abdominal fistula/total parental feeding since early this year. Patient presents to the ER with profound jaundice/shortness of breath and acute mental status change. Initial work-up was consistent with septic shock with systolics in 70s, elevated bilirubin over 12, hypokalemia,, sodium 155, platelets 65, chest imaging with left lower lobe infiltrate likely secondary to mucous plugging. Due to critical nature of illness patient was started on vasopressors and pulmonology was consulted. Hospital service was consulted. Patient is accompanied with her aunt and patient's POA Kierra. Sister is on the way. Family after extended discussion with patient/POA and ER physician Dr. Florian decided to discontinue aggressive intervention and transition to comfort interventions for end-of-life care. During my visit and and POA was present. I discussed patient's clinical picture including septic shock/pneumonia/metastatic cancer with lesions in lung and liver/profound mental status change and jaundice. Family was able to provide history and a long danielle with cancer and ongoing chemotherapy/abdominal fistula/total parenteral nutrition without significant improvement in quality of life. At this time everyone in the room including POA wishes to initiate palliative care for end-of-life transition and comfort I discussed the components of comfort care includes discontinuation of antibiotics/IV fluids/total parenteral nutrition and vasopressors. Patient will be kept on anxiolytics/analgesics for end-of-life care to allay anxiety and pain. Family is agreeable to the plan and patient will be transferred to medical floor for aggressive pain and symptom management Responded to nurse call regarding family wanting additional conference about goals of care. Patient's sister just arrived and would like an update. I subsequently discussed clinical picture including work-up in ER, imaging, blood tests and multiorgan dysfunction in the setting of septic shock. Sister agrees with continuation of comfort care including aggressive cancer pain management. Patient is awake and agrees with the treatment plan understanding that he would pass away. 06/04-patient comfortable overnight. On palliative care interventions. Remains icteric. No family at bedside. No concerns per staff. 06/05 Pt is sleeping and can not wake up by voice. He seems to be comfortable. Has mild fever. No overnight significant events. ROS: unable to complete due to mental status. Constitutional Vitals: Vital Signs Temp Pulse Resp BP Pulse Ox 99.9 F H 104 H 20 87/56 87 L 06/05/20 08:00 06/05/20 08:00 06/05/20 08:00 06/05/20 08:00 06/05/20 08:00 Period Temp Pulse Resp BP Sys/Singh Pulse Ox Last 24 Hr 99.9 F-102.4 F 104 20-28 75-87/56-58 87-95 Intake and Output 06/05/20 06/05/20 06/05/20 05:59 13:59 21:59 Output Total 450 Balance -450 Intake & Output: Intake & Output 06/05/20 06/05/20 06/05/20 05:59 13:59 21:59 Output Total 450 Balance -450 Output: Gastric Drainage 250 PEG 250 Urine Catheter Amount 200 Additional findings Additional findings: General - Sleeping Eyes - No conjunctival injection ENT no rhinorrhea, no noticeable or palpable swelling, no redness or rash around throat or on face Neck no JVD, no thyromegaly Respiratory: Lungs - diminshed BS, Cardiovascular - RRR no m/r/g, GI - Normal bowel sounds, no distended, soft. Extremeties - No edema, cyanosis or clubbing Hemo/lymphatic/immune no lymphadenopathy Neurological sleeping OBJ DATA Labs CBC & Chem 7: 06/03/20 10:12 06/03/20 10:12 Labs: Abnormal Lab Results 06/03/20 06/03/20 06/03/20 11:03 10:12 10:12 RBC Hgb Hct MCHC RDW Plt Count Gran % Lymph % (Auto) Gran # Lymph # (Auto) VBG Lactic Acid 4.0 H* Sodium 155 H Potassium 2.9 L* Chloride 118 H Carbon Dioxide 18 L Anion Gap 19.0 H BUN 62 H Calcium 8.4 L Magnesium 2.8 H Total Bilirubin 11.7 H AST 66 H ALT 112 H Alkaline Phosphatase 1507 H NT-Pro-B Natriuret Pep 190.1 H Total Protein 5.4 L Albumin 1.7 L Albumin/Globulin Ratio 0.5 L Urine Protein 30 A Urine Bilirubin 4.0 A Urine Ictotest Pos A Urine Urobilinogen 4.0 A Urine Bacteria Many A Hyaline Casts 31 H Granular Casts 27 H 06/03/20 10:12 RBC 3.61 L Hgb 10.5 L Hct 34.4 L MCHC 30.5 L RDW 18.6 H Plt Count 65 L Gran % 96.4 H Lymph % (Auto) 2.1 L Gran # 10.32 H Lymph # (Auto) 0.23 L VBG Lactic Acid Sodium Potassium Chloride Carbon Dioxide Anion Gap BUN Calcium Magnesium Total Bilirubin AST ALT Alkaline Phosphatase NT-Pro-B Natriuret Pep Total Protein Albumin Albumin/Globulin Ratio Urine Protein Urine Bilirubin Urine Ictotest Urine Urobilinogen Urine Bacteria Hyaline Casts Granular Casts Meds: Medications Fentanyl (Duragesic) 400 mcg TOPICAL Q72H [facility] Last Admin: 06/03/20 17:55 Dose: 400 mcg Documented by: Glucose Oxid/Lactoperoxid/Muramidas (Biotene) 1 each TOPICAL PRN PRN PRN Reason: Dry Mouth Heparin Sodium (Porcine) (Heparin 10 Units/Ml Flush) 2 ml IV Q12 [facility] Last Admin: 06/05/20 11:58 Dose: 2 ml Documented by: Hydromorphone HCl (Dilaudid) 0 mg IV Q2HP PRN; Protocol PRN Reason: Per Pain Protocol Last Admin: 06/05/20 02:17 Dose: 2 mg Documented by: Lorazepam (Ativan) 0 mg IV Q1HP PRN; Protocol PRN Reason: ANXIETY/SEDATION Last Admin: 06/05/20 13:35 Dose: 2 mg Documented by: Nicotine (Nicoderm) 21 mg TOPICAL DAILY@1000 [facility] Last Admin: 06/05/20 11:59 Dose: 21 mg Documented by: Ondansetron HCl (Zofran Odt) 4 mg SL Q4HP PRN; Protocol PRN Reason: Nausea And Vomiting Last Admin: 06/04/20 08:59 Dose: 4 mg Documented by: Ondansetron HCl (Zofran) 4 mg IV Q4HP PRN; Protocol PRN Reason: Nausea And Vomiting Scopolamine (Transderm-Scop) 1 patch TOPICAL Q72H [facility] Last Admin: 06/03/20 16:54 Dose: 1 patch Documented by: Sodium Chloride (Saline Flush) 10 ml IV Q12 [facility] Last Admin: 06/05/20 11:58 Dose: 10 ml Documented by: A/P Narrative A/P Narrative: Assessment: Septic shock secondary to pneumonia Left lower lobe atelectasis/pneumonia Metastatic colon cancer, new onset apical lung cancer Obstructive jaundice secondary to infiltrative liver lesions Hyponatremia Hypokalemia Severe malnutrition has been on TPN. Discontinued per family request Plan Continue palliation Aggressive pain and symptom management Family conference as needed Time Spent With Patient Time: Total time spent is greater than 50% in coordination of care (as documented) at patient's floor/unit and/or counseling patient: QUALITY VTE Deep Vein Thrombosis/Pulmonary Embolism Present on Admission: No
[2020-06-05] MEDS ORDERED: ACETAMINOPHEN 500 MG/50 ML BOTTLE IV PRN (18:53)
[2020-06-06] MEDS: HYDROmorphone 1 MG/ML SYRINGE IV PRN ×2 (00:30→02:20)
[2020-06-06] MEDS: LORazepam 2 MG/ML VIAL IV PRN (02:19)
[2020-06-06] MEDS: 0.9 % SODIUM CHLORIDE 10 ML SYRINGE IV SCH (10:40)
[2020-06-06] MEDS: NICOTINE 21 MG PATCH TOPICAL SCH (10:41)
[2020-06-06] MEDS: fentaNYL 100 MCG PATCH TOPICAL SCH (13:02)
--- NOTE | 2020-06-06 16:45 | Discharge Summary ---
Discharge Provider Provider Patient information: Note initiated : 06/06/20 at 4:39 pm Service Date, if different from initiated Date: [] Patient: Viktor Sarkar a 59 y/o M admitted on 06/03/20 for Sob. Chief Complaint: [] Mr. Sarkar is a 59 year old M with a history of metastatic colon cancer on outpatient chemotherapy and [facility]/severe cancer pain, recent pneumonia end of March abdominal fistula/total parental feeding since early this year. Patient presents to the ER with profound jaundice/shortness of breath and acute mental status change. Initial work-up was consistent with septic shock with systolics in 70s, elevated bilirubin over 12, hypokalemia,, sodium 155, platelets 65, chest imaging with left lower lobe infiltrate likely secondary to mucous plugging. Due to critical nature of illness patient was started on vasopressors and pulmonology was consulted. Hospital service was consulted. Patient is accompanied with her aunt and patient's POA Kierra. Sister is on the way. Family after extended discussion with patient/POA and ER physician Dr. Florian decided to discontinue aggressive intervention and transition to comfort interventions for end-of-life care. During my visit and and POA was present. I discussed patient's clinical picture including septic shock/pneumonia/metastatic cancer with lesions in lung and liver/profound mental status change and jaundice. Family was able to provide history and a long danielle with cancer and ongoing chemotherapy/abdominal fistula/total parenteral nutrition without significant improvement in quality of life. At this time everyone in the room including POA wishes to initiate palliative care for end-of-life transition and comfort I discussed the components of comfort care includes discontinuation of antibiotics/IV fluids/total parenteral nutrition and vasopressors. Patient will be kept on anxiolytics/analgesics for end-of-life care to allay anxiety and pain. Family is agreeable to the plan and patient will be transferred to medical floor for aggressive pain and symptom management Responded to nurse call regarding family wanting additional conference about goals of care. Patient's sister just arrived and would like an update. I subsequently discussed clinical picture including work-up in ER, imaging, blood tests and multiorgan dysfunction in the setting of septic shock. Sister agrees with continuation of comfort care including aggressive cancer pain management. Patient is awake and agrees with the treatment plan understanding that he would pass away. 06/04-patient comfortable overnight. On palliative care interventions. Remains icteric. No family at bedside. No concerns per staff. 06/05 Pt is sleeping and can not wake up by voice. He seems to be comfortable. Has mild fever. No overnight significant events. 06/06 Pt today ROS: Date of admission: 06/03/20 14:58 Discharge date: 06/06/20 Primary care physician: Vini Mckinley DO Consults: 06/03/20 Consult to Physician [CONS] Stat Comment: Consulting Provider: Bahman De Anda Reason For Exam: Physician to Consult Discharge Meds Discharge Medications Home Medications budesonide 3 mg capsule,delayed,extended release 3 mg PO QAM #30 each 04/27/20 [Rx Confirmed 06/03/20 Last Taken Unknown] prochlorperazine maleate 10 mg tablet 10 mg PO Q6H PRN #90 tab 05/04/20 [Rx Confirmed 06/03/20 Last Taken Unknown] fentanyl 75 mcg/hr transdermal patch 5 patch TRANSDERMA Q72H 28 Days #50 each 05/18/20 [Rx Confirmed 06/03/20 Last Taken Unknown] hydromorphone 4 mg tablet See Rx Instructions PO QID PRN #180 tab 05/19/20 [Rx Confirmed 06/03/20 Last Taken Unknown] ondansetron 8 mg disintegrating tablet 8 mg PO Q8H PRN #60 tab 05/27/20 [Rx Confirmed 06/03/20 Last Taken Unknown] apixaban 5 mg tablet 5 mg PO BID #60 tab 05/31/20 [Rx Confirmed 06/03/20 Last Taken Unknown] oxybutynin chloride 5 mg tablet,extended release 24 hr 5 mg PO QDAY #30 tab 05/31/20 [Rx Confirmed 06/03/20 Last Taken Unknown] tamsulosin 0.4 mg capsule 0.4 mg PO QHS #90 cap 05/31/20 [Rx Confirmed 06/03/20 Last Taken Unknown] fentanyl 100 mcg/hr transdermal patch See Rx Instructions TRANSDERMA Q48H #60 each 06/02/20 [Rx Confirmed 06/03/20 Last Taken Unknown] dicyclomine 10 mg PO QID PRN 06/03/20 [History Confirmed 06/03/20 Last Taken Unknown] lorazepam 0.5 mg PO BID 06/03/20 [History Confirmed 06/03/20 Last Taken Unknown] morphine 5 - 10 mg PO Q6H PRN 06/03/20 [History Confirmed 06/03/20 Last Taken Unknown] naloxone [Narcan] 1 spray INTRANASAL Q2M 06/03/20 [History Confirmed 06/03/20 Last Taken Unknown] sertraline 100 mg PO BID 06/03/20 [History Confirmed 06/03/20 Last Taken Unknown] COURSE Hospital Course Hospital course: Mr. Sarkar is a 59 year old M with a history of metastatic colon cancer who presented to the ER with profound jaundice/shortness of breath and acute mental status change. Pt on comfort care today. Discharge diagnosis: Septic shock, pneumonia, Metastatic cancer. Time Spent with Patient Time attestation: Total time spent providing and/or coordinating discharge services: EXAM Constitutional Vitals: Temp Pulse Resp BP Pulse Ox 99.9 F H 104 H 22 87/56 87 L 06/06/20 11:14 06/05/20 08:00 06/06/20 03:45 06/05/20 08:00 06/05/20 08:35 Discharge Data Data Completed and Pending Labs on day of discharge: Preliminary micro results at discharge 06/03/20 10:08 Blood Culture - Preliminary Blood Gram negative bacillus 06/03/20 10:25 Blood Culture - Preliminary Blood Gram negative bacillus Discharge Plan Patient/Caregiver Discharge Instructions Prescriptions: No Action prochlorperazine maleate 10 mg tablet 10 mg PO Q6H PRN (Reason: Nausea) Qty: 90 RF: 0 fentanyl 75 mcg/hr patch 72 hour 5 patch TRANSDERMA Q72H 28 Days Qty: 50 RF: 0 hydromorphone 4 mg tablet See Rx Instructions PO QID PRN (Reason: Pain) Qty: 180 RF: 0 ondansetron 8 mg tablet,disintegrating 8 mg PO Q8H PRN (Reason: nausea and vomiting) Qty: 60 RF: 0 Eliquis 5 mg tablet 5 mg PO BID Qty: 60 RF: 5 tamsulosin [Flomax] 0.4 mg capsule 0.4 mg PO QHS Qty: 90 RF: 3 oxybutynin chloride 5 mg tablet extended release 24hr 5 mg PO QDAY Qty: 30 RF: 5 budesonide 3 mg capsule,delayed,extend.release 3 mg PO QAM Qty: 30 RF: 0 fentanyl 100 mcg/hr patch 72 hour See Rx Instructions TRANSDERMA Q48H Qty: 60 RF: 0 sertraline 100 mg Tablet 100 mg PO BID RF: 0 morphine 10 mg/5 mL Solution 5 - 10 mg PO Q6H PRN (Reason: Pain) RF: 0 lorazepam 0.5 mg Tablet 0.5 mg PO BID RF: 0 dicyclomine 10 mg Capsule 10 mg PO QID PRN (Reason: Abdominal Discomfort) RF: 0 Narcan 4 mg/actuation [place],Non-Aerosol 1 spray INTRANASAL Q2M RF: 0 Follow Up Plan Patient Disposition: Prognosis: Critical Discharge Date/Time: 06/06/20 12:10 Discharge Orders: Discharge Order (Routine); Ordered 06/06/20 Ordered By: Asia Butler Discharge Comment: [facility] at 1610 Interventions Interventions: Discharge Assessment Last Done: 06/06/20 16:22 Discharge Belongings Last Done: 06/06/20 16:21 QUALITY VTE Deep Vein Thrombosis/Pulmonary Embolism Present on Admission: No
== END 2020-06-06 12:10 | disposition expired | DRG 951 ==
LOC: ED 09:09 → ICU 14:58 → MEDSUR 06-05 00:20
PROVIDERS: ADMIT Internal Medicine; ATTEND Internal Medicine